=== PATIENT | female | born 1995 | race American Indian/Alaskan Native ===

== ENCOUNTER 2022-06-20 11:52 | Inpatient (IN) | payer MEDICAID ==
[2022-06-20] MEDS ORDERED: OXYTOCIN 10 UNIT/1 ML INJ IM NR (11:59)
[2022-06-20] MEDS ORDERED: TERBUTALINE 1 MG/1 ML INJ SUB-Q NR (11:59)
[2022-06-20 13:10] LABS: Hematocrit 32.5 % (30.3-42.9); Hemoglobin 10.9 gm/dl (10.1-14.3); Mean Corpuscular HGB Conc 34 % (30-34); Mean Corpuscular Volume 96 fl (79-97); Platelet Count 197 K/mm3 (140-440); Red Blood Count 3.39 M/mm3 (3.65-5.03); Red Cell Distribution Width 13.7 % (13.2-15.2)
[2022-06-20] MEDS ORDERED: LIDOCAINE (2%) 20 MG/1 ML VIAL 20 ML MDV INFILTRATI NR (14:00)
[2022-06-20] MEDS ORDERED: ePHEDrine SULFATE 50 MG/1 ML INJ IV PRN ×2 (14:00→19:30)
--- NOTE | 2022-06-20 14:25 | History and Physical Report ---
History of Present Illness Date of examination: 06/20/22 Chief complaint: pt sent from [facility] office for IOL d/t IUGR History of present illness: EDC Calculations by LMP: 06/27/2022 Past History : 2 Term Births: 1 Premature Births: 0 Living Children: 1 Para: 1 Mult. Births: 0 Prev : 0 Aborta: 0 Elect. Ab: 0 Spont. Ab: 0 Ectopics: 0 # 1 Delivery date: 2013 Weeks Gestation: 39.3 labor: no Delivery type: Hours of labor: 4.5 Anesthesia type: epidural Infant Sex: Female weight: 6-3 Comments: No complications Past Medical History: Reviewed and updated today: Negative Past Medical History Past Surgical History: Reviewed and updated today: negative Negative Past Surgical History Family History Summary: CHRISTINA - Has Family History of Diabetes - Entered On: 05/18/2022 Social History: Patient is Smoking History: Patient has never smoked. Risk Factors: Smoked Tobacco Use: Never smoker Smokeless Tobacco Use: Never HIV High Risk Behavior: no Caffeine Use: 2 drinks per day Exercise: yes Type of Exercise: walking Exercise Counseling: yes Seatbelt Use: preg-assessment counselor % Sun Exposure: rarely Family History Risk Factors: Family History of AR in 1 Female Relative Age < 65: no Family History of AR in 1 Male Relative Age < 55: no Dietary Counseling: yes PAP Smear History: Date of Last PAP Smear: 11/25/2021 Results: normal Alcohol Use: no Drug Use: no Past Medical History Anesthesia Complications: negative Anemia: negative Autoimmune Disorder: negative Bleeding Disorder: negative Blood Transfusions: negative Breast Disease: negative Diabetes: negative Heart Disease: negative Hypertension: negative Hepatitis/Liver Disease: negative Kidney Disease/UTI: negative Neurologic/Epilepsy/Migraines: negative Phlebitis/Varicosities: negative Psychiatric: negative Pulmonary Disease/Asthma: negative Thyroid Disease: negative Hospitalizations: negative Surgery (Non-supervisor shaving and splitting): negative Negative Past Surgical History Abnormal PAP: negative NORIS Exposure: negative Infertility: negative Uterine Anomaly: negative Uterine Surgery (not C/S): negative Other Gynecologic Problems: negative Social Hx: Patient is Smoking History: Patient has never smoked. Infection History Hx of STD: none HIV Risk Eval: no Hepatitis B Risk Eval: low risk Personal hx. of genital herpes: no Partner hx. of genital herpes: no Rash, Viral, or Febrile illness since last LMP? no Varicella/Chicken Pox Status: Previous Disease TB Risk: no Genetic History Congenital Heart Defect: Mom: no Dad: no Mich Disease: Mom: no Dad: no Thalassemia Mom: no Dad: no Neural Tube Defect Mom: no Dad: no Down's Syndrome Mom: no Dad: no Kole-Sachs Mom: no Dad: no Sickle Cell Disease/Trait Mom: no Dad: no Hemophilia Mom: no Dad: no Muscular Dystrophy Mom: no Dad: no Cystic Fibrosis Mom: no Dad: no [place] Chorea Mom: no Dad: no Mental Retardation Mom: no Dad: no Fragile X Mom: no Dad: no Other Genetic/Chromosomal Disorder Mom: no Dad: no Child w/other defect Mom: no Dad: no Enviromental Exposures Xray Exposure: no Medication, drug, or alcohol use since LMP: no Chemical/Other Exposure: no Exposure to Cat Liter: no Hx of Parvovirus (Fifth Disease): no Occupational Exposure to Children: none Active Medications (reviewed today): None Current Allergies: Past History Past Medical History: other (see HPI) Past Surgical History: other (see HPI) FINAL EXPENSE AGENT History: other (see HPI) Family/Genetic History: other (see HPI) - Obstetrical History Expected Date of Delivery: 06/27/22 Actual Gestation: 39 Week(s) 0 Day(s) : 2 Para: 1 Hx # Term Pregnancies: 1 Number of Pregnancies: 0 Spontaneous Abortions: 0 Induced : 0 Number of Living Children: 1 Medications and Allergies Allergies Allergy/AdvReac Type Severity Reaction Status Date / Time No Known Allergies Allergy Unverified 06/20/22 13:28 Active Meds: Active Medications Acetaminophen (Acetaminophen 325 Mg Tab) 650 mg PO Q4H PRN PRN Reason: Pain, Mild (1-3) Carboprost Tromethamine (Carboprost Tromethamine 250 Mcg/1 Ml Inj) 250 mcg IM ONCE NR Stop: 06/20/22 23:00 Ephedrine Sulfate (Ephedrine Sulfate 50 Mg/1 Ml Inj) 10 mg IV Q2M PRN PRN Reason: Hypotension Fentanyl (Fentanyl 100 Mcg/2 Ml Inj) 100 mcg IV Q2H PRN PRN Reason: Pain,Severe (7-10) LABOR PAIN Oxytocin/Sodium Chloride (Pitocin/Ns 30 Unit/500ml) 30 units in 500 mls @ 4 mls/hr IV TITR MEHREEN; Protocol Lactated Ringer's (Lactated Ringers) 1,000 mls @ 125 mls/hr IV DIRECT MEHREEN Oxytocin/Sodium Chloride (Pitocin/Ns 30 Unit/500ml) 30 units in 500 mls @ 40 mls/hr IV TITR MEHREEN; Protocol Lidocaine (Lidocaine (2%) 20 Mg/1 Ml Vial 20 Ml Mdv) 20 ml INFILTRATI ONCE NR Stop: 06/20/22 23:00 Loperamide HCl (Loperamide 2 Mg Cap) 2 mg PO ONCE PRN PRN Reason: give with Hemabate Methylergonovine Maleate (Methylergonovine Maleate 0.2 Mg/Ml Vial) 0.2 mg IM ONCE PRN PRN Reason: Uterine Bleeding Mineral Oil (Mineral Oil 30 Ml Oral Liqd) 30 ml PO QHS PRN PRN Reason: Constipation Misoprostol (Misoprostol 200 Mcg Tab) 800 mcg DE ONCE PRN PRN Reason: Uterine Bleeding Nalbuphine HCl (Nalbuphine 10 Mg/1 Ml Inj) 10 mg IV Q2H PRN PRN Reason: Pain, Moderate (4-6) Ondansetron HCl (Ondansetron 4 Mg/2 Ml Inj) 4 mg IV Q8H PRN PRN Reason: Nausea And Vomiting Oxytocin (Oxytocin 10 Unit/1 Ml Inj) 10 unit IM ONCE NR Stop: 06/20/22 23:00 Terbutaline Sulfate (Terbutaline 1 Mg/1 Ml Inj) 0.25 mg SUB-Q ONCE NR Stop: 06/20/22 23:00 Review of Systems All systems: negative - Vital Signs Vital signs: Vital Signs Pulse Pulse Ox 90 99 06/20/22 12:31 06/20/22 12:31 Temp Pulse Resp BP Pulse Ox 90 100 06/20/22 14:16 06/20/22 14:16 - Physical Exam Breasts: Positive: normal Cardiovascular: Regular rate Lungs: Positive: Clear to auscultation, Normal air movement Abdomen: Positive: normal appearance, soft Genitourinary (Female): Positive: normal external genitalia, normal perenium Vagina: Positive: normal moisture Uterus: Positive: normal size, normal contour - Obstetrical FHR: category 1 Uterine Contraction Monitor Mode: External Cervical Dilatation: 2 Cervical Effacement Percentage: 70 station: -1 Uterine Tone Measurement Phase: Resting Results Result Diagrams: 06/20/22 12:47 Abnormal lab results 06/20/22 Range/Units 12:47 RBC 3.39 L (3.65-5.03) M/mm3 All other labs normal. Assessment and Plan 26y/o @ 39 weeks admitted for IOL as recommended by [facility] d/t IUGR. EFW 6#2oz, cephalic presentation. IOL orders in EMR. all questions addressed. Epidural PRN. Anticipate . - Patient Problems (1) 39 weeks gestation of Current Visit: Yes Status: Acute (2) Abnormal glucose tolerance test (GTT) Current Visit: Yes Status: Acute Plan to address problem: late 1hGTT elevated @ 144, no 3hr done Peds to see baby after delivery (3) IUGR (intrauterine growth restriction) Current Visit: Yes Status: Acute (4) Rh negative status during Current Visit: Yes Status: Acute Qualifiers: Trimester: third trimester Qualified Code(s): O26.893 - Other specified related conditions, third trimester; Z67.91 - Unspecified blood type, Rh negative Plan to address problem: Rhogam work up
[2022-06-20] MEDS ORDERED: OXYTOCIN DRIP 30 UNITS/500 ML BAG IV SCH ×2 (14:30)
[2022-06-20] MEDS ORDERED: CARBOPROST TROMETHAMINE 250 MCG/1 ML INJ IM NR (14:30)
[2022-06-20] MEDS ORDERED: fentaNYL 100 MCG/2 ML INJ IV PRN (14:30)
[2022-06-20] MEDS ORDERED: METHYLERGONOVINE MALEATE 0.2 MG/ML VIAL IM PRN (14:30)
[2022-06-20] MEDS ORDERED: NalbUPHINE 10 MG/1 ML INJ IV PRN (14:30)
[2022-06-20] MEDS ORDERED: ACETAMINOPHEN 325 MG TAB PO PRN (14:30)
[2022-06-20] MEDS ORDERED: ONDANSETRON 4 MG/2 ML INJ IV PRN (14:30)
[2022-06-20] MEDS ORDERED: miSOPROStol 200 MCG TAB PR PRN (14:30)
[2022-06-20] MEDS ORDERED: LOPERAMIDE 2 MG CAP PO PRN (14:30)
[2022-06-20] MEDS ORDERED: LACTATED RINGERS 1,000 ML IV SCH (14:30)
--- NOTE | 2022-06-20 17:22 | Progress Note ---
Assessment and Plan Pt marco antonio regularly on pitocin, tolerating labor well. SVE 3-4/70/0. AROM with moderate amount of clear fluid. FHTs reassuring. Anticipate - Patient Problems (1) 39 weeks gestation of Current Visit: Yes Status: Acute (2) Abnormal glucose tolerance test (GTT) Current Visit: Yes Status: Acute (3) IUGR (intrauterine growth restriction) Current Visit: Yes Status: Acute (4) Rh negative status during Current Visit: Yes Status: Acute Qualifiers: Trimester: third trimester Qualified Code(s): O26.893 - Other specified related conditions, third trimester; Z67.91 - Unspecified blood type, Rh negative Subjective - Subjective Date of service: 06/20/22 Interval history: EDC Calculations by LMP: 06/27/2022 Past History : 2 Term Births: 1 Premature Births: 0 Living Children: 1 Para: 1 Mult. Births: 0 Prev : 0 Aborta: 0 Elect. Ab: 0 Spont. Ab: 0 Ectopics: 0 # 1 Delivery date: 2013 Weeks Gestation: 39.3 labor: no Delivery type: Hours of labor: 4.5 Anesthesia type: epidural Infant Sex: Female weight: 6-3 Comments: No complications Past Medical History: Reviewed and updated today: Negative Past Medical History Past Surgical History: Reviewed and updated today: negative Negative Past Surgical History Family History Summary: CHRISTINA - Has Family History of Diabetes - Entered On: 05/18/2022 Social History: Patient is Smoking History: Patient has never smoked. Risk Factors: Smoked Tobacco Use: Never smoker Smokeless Tobacco Use: Never HIV High Risk Behavior: no Caffeine Use: 2 drinks per day Exercise: yes Type of Exercise: walking Exercise Counseling: yes Seatbelt Use: preg-estate planning counselor % Sun Exposure: rarely Family History Risk Factors: Family History of RI in 1 Female Relative Age < 65: no Family History of RI in 1 Male Relative Age < 55: no Dietary Counseling: yes PAP Smear History: Date of Last PAP Smear: 11/25/2021 Results: normal Alcohol Use: no Drug Use: no Past Medical History Anesthesia Complications: negative Anemia: negative Autoimmune Disorder: negative Bleeding Disorder: negative Blood Transfusions: negative Breast Disease: negative Diabetes: negative Heart Disease: negative Hypertension: negative Hepatitis/Liver Disease: negative Kidney Disease/UTI: negative Neurologic/Epilepsy/Migraines: negative Phlebitis/Varicosities: negative Psychiatric: negative Pulmonary Disease/Asthma: negative Thyroid Disease: negative Hospitalizations: negative Surgery (Non-music publicist): negative Negative Past Surgical History Abnormal PAP: negative NORIS Exposure: negative Infertility: negative Uterine Anomaly: negative Uterine Surgery (not C/S): negative Other Gynecologic Problems: negative Social Hx: Patient is Smoking History: Patient has never smoked. Infection History Hx of STD: none HIV Risk Eval: no Hepatitis B Risk Eval: low risk Personal hx. of genital herpes: no Partner hx. of genital herpes: no Rash, Viral, or Febrile illness since last LMP? no Varicella/Chicken Pox Status: Previous Disease TB Risk: no Genetic History Congenital Heart Defect: Mom: no Dad: no Mich Disease: Mom: no Dad: no Thalassemia Mom: no Dad: no Neural Tube Defect Mom: no Dad: no Down's Syndrome Mom: no Dad: no Kole-Sachs Mom: no Dad: no Sickle Cell Disease/Trait Mom: no Dad: no Hemophilia Mom: no Dad: no Muscular Dystrophy Mom: no Dad: no Cystic Fibrosis Mom: no Dad: no [place] Chorea Mom: no Dad: no Mental Retardation Mom: no Dad: no Fragile X Mom: no Dad: no Other Genetic/Chromosomal Disorder Mom: no Dad: no Child w/other defect Mom: no Dad: no Enviromental Exposures Xray Exposure: no Medication, drug, or alcohol use since LMP: no Chemical/Other Exposure: no Exposure to Cat Liter: no Hx of Parvovirus (Fifth Disease): no Occupational Exposure to Children: none Active Medications (reviewed today): None Current Allergies: Patient reports: movement normal, contractions Objective - Vital Signs Vital Signs: Vital Signs - 12hr 06/20/22 06/20/22 06/20/22 12:31 12:36 12:41 Pulse Rate 90 88 88 O2 Sat by Pulse 99 100 99 Oximetry 06/20/22 06/20/22 06/20/22 12:46 12:51 12:56 Pulse Rate 94 H 92 H 95 H O2 Sat by Pulse 99 99 99 Oximetry 06/20/22 06/20/22 06/20/22 13:01 13:06 13:11 Pulse Rate 110 H 90 97 H O2 Sat by Pulse 100 100 99 Oximetry 08/15/22 08/15/22 08/15/22 13:16 13:21 13:26 Pulse Rate 94 H 91 H 87 O2 Sat by Pulse 100 99 100 Oximetry 06/20/22 06/20/22 06/20/22 13:31 13:36 13:41 Pulse Rate 88 88 96 H O2 Sat by Pulse 100 100 99 Oximetry 06/20/22 06/20/22 06/20/22 13:46 13:51 13:56 Pulse Rate 78 87 91 H O2 Sat by Pulse 100 100 100 Oximetry 06/20/22 06/20/22 06/20/22 14:01 14:06 14:11 Pulse Rate 86 85 95 H O2 Sat by Pulse 100 100 100 Oximetry 06/20/22 06/20/22 06/20/22 14:16 14:21 14:26 Pulse Rate 90 90 85 O2 Sat by Pulse 100 99 100 Oximetry 06/20/22 06/20/22 06/20/22 14:31 14:36 14:41 Pulse Rate 106 H 90 90 O2 Sat by Pulse 100 100 100 Oximetry 06/20/22 06/20/22 06/20/22 14:46 14:51 14:56 Pulse Rate 85 84 80 O2 Sat by Pulse 100 100 100 Oximetry 06/20/22 06/20/22 06/20/22 15:01 15:06 15:11 Pulse Rate 92 H 95 H 88 O2 Sat by Pulse 100 98 99 Oximetry 06/20/22 06/20/22 06/20/22 15:16 15:21 15:26 Pulse Rate 79 92 H 86 O2 Sat by Pulse 99 99 99 Oximetry 06/20/22 06/20/22 06/20/22 15:31 15:40 15:45 Pulse Rate 89 80 89 O2 Sat by Pulse 100 100 100 Oximetry 06/20/22 06/20/22 06/20/22 15:50 15:55 16:00 Pulse Rate 94 H 90 90 O2 Sat by Pulse 100 100 100 Oximetry 06/20/22 06/20/22 06/20/22 16:05 16:10 16:15 Pulse Rate 88 86 84 O2 Sat by Pulse 100 100 100 Oximetry 06/20/22 06/20/22 06/20/22 16:20 16:25 16:30 Pulse Rate 84 86 83 O2 Sat by Pulse 100 100 100 Oximetry 06/20/22 06/20/22 06/20/22 16:35 16:40 16:45 Pulse Rate 82 83 82 O2 Sat by Pulse 100 100 100 Oximetry 06/20/22 06/20/22 06/20/22 16:50 16:55 17:00 Pulse Rate 82 79 90 O2 Sat by Pulse 100 100 100 Oximetry 06/20/22 06/20/22 06/20/22 17:05 17:10 17:15 Pulse Rate 96 H 86 89 O2 Sat by Pulse 100 100 100 Oximetry - Exam Abdomen: Present: normal appearance, soft Uterus: Present: normal FHR: auscultation normal Uterine Contraction Monitor Mode: External Cervical Dilatation: 3.5 Cervical Effacement Percentage: 70 station: 0 Uterine Contraction Pattern: Regular Extremities: normal - Labs Labs: Abnormal Labs 06/20/22 12:47 RBC 3.39 L Laboratory Results - last 24 hr 06/20/22 06/20/22 12:47 12:47 WBC 9.4 RBC 3.39 L Hgb 10.9 Hct 32.5 MCV 96 MCH 32 MCHC 34 RDW 13.7 Plt Count 197 Blood Type O NEGATIVE Antibody Screen Positive Antibody Identification Anti-D (Passively Aquired)
[2022-06-20] MEDS ORDERED: MINERAL OIL 30 ML ORAL LIQD ONE (18:02)
--- NOTE | 2022-06-20 18:45 | Anesthesia Consultation ---
Anesthesia Consult and Med Hx Date of service: 06/20/22 - Airway Anesthetic Teeth Evaluation: Good ROM Head & Neck: Adequate Mental/Hyoid Distance: Adequate Mallampati Class: Class II Intubation Access Assessment: Probably Good - Pulmonary Exam CTA: Yes - Cardiac Exam Cardiac Exam: RRR - Pre-Operative Health Status ASA Pre-Surgery Classification: ASA2 Proposed Anesthetic Plan: Epidural - Pulmonary Hx Smoking: No Hx Asthma: No Hx Respiratory Symptoms: No SOB: No COPD: No Home Oxygen Therapy: No Hx Pneumonia: No Hx Sleep Apnea: No - Cardiovascular System Hx Hypertension: No Hx Coronary Artery Disease: No Hx Heart Attack/AMI: No Hx Angina: No Hx Percutaneous Transluminal Coronary Angioplasty (PTCA): No Hx Cardia Arrhythmia: No Hx Pacemaker: No Hx Internal Defibrillator: No Hx Valvular Heart Disease: No Hx Heart Murmur: No Hx Peripheral Vascular Disease: No - Central Nervous System Hx Neuromuscular Disorder: No Hx Seizures: No CVA: No Hx Back Pain: No Hx Psychiatric Problems: Yes (depression) - Gastrointestinal Hx Ulcer: No Hx Gastroesophageal Reflux Disease: No - Endocrine Hx Renal Disease: No Hx End Stage Renal Disease: No Hx Cirrhosis: No Hx Liver Disease: No Hx Insulin Dependent Diabetes: No Hx Non-Insulin Dependent Diabetes: No Hx Thyroid Disease: No Hx Hypothyroidism: No Hx Hyperthyroidism: No - Hematic Hx Anemia: No Hx Sickle Cell Disease: No - Other Systems Hx Alcohol Use: No Hx Substance Use: No Hx Cancer: No Hx Obesity: No
--- NOTE | 2022-06-20 18:45 | Anesthesia Day of Surgery ---
Anesthesia Day of Surgery - Day of Surgery Patient Examined: Yes Patient H&P Reviewed: Yes Patient is NPO: Yes Beta Blockers: No Cardiac Clearance: No Pulmonary Clearance: No René's Test: N/A
--- NOTE | 2022-06-20 18:45 | Progress Note ---
Labor Epidural - Labor Epidural Start Time: 18:25 Stop Time: 18:27 Performed by:: BAN ACEVEDO Procedure: Epidural Requested for Labor Pain. H&P and PT Chart reviewed and consent obtained. Time out performed and the procedure was explained, all questions answered. Patient was placed in a sitting position with monitors applied. The PTs back was prepped and draped in usual sterile fashion. The Skin was localized with 3 mL of 1% lidocaine at L3-L4. A 17-gauge Touhy epidural needle was advanced to ANGEL with saline at 7 cm and no blood/CSF was noted via epidural needle. Epidural catheter was advanced to 12 cm. There was negative aspiration for blood and CSF in the catheter and negative response to a test dose of 3 ml 1.5% lidocaine w/ Epi and a sterile dressing was applied Patient tolerated the procedure well and there were no immediate complications noted.
[2022-06-20] MEDS ORDERED: fentaNYL-BUPIV 2 MCG/ML-0.125% 200 MCG/100 ML BAG EPIDURAL SCH (19:00)
[2022-06-20] MEDS ORDERED: fentaNYL-BUPIV 2 MCG/ML-0.125% 200 MCG/100 ML BAG EPIDURAL ONE (19:01)
[2022-06-20] MEDS ORDERED: NALOXONE 0.4 MG/1 ML INJ IV PRN (19:30)
--- NOTE | 2022-06-20 21:43 | Procedure Note ---
OB Delivery Note - Delivery Date of Delivery: 06/20/22 Hoist Operator: FABRICIO GUIDRY (Darling SANCHEZ) Estimated blood loss: <100cc - Vaginal Delivery presentation: vertex Delivery position: OA Intrapartum events: none Delivery induction: oxytocin Delivery augmentation: rupture of membranes Delivery monitor: external FHT Route of delivery: Delivery placenta: spontaneous Delivery cord: 3 umbilical vessels Episiotomy: none Anesthesia: epidural Delivery comments: Baby girl delivered over intact perineum, placed skin to skin, cord cut after p ulse cessation, cord blood collected; placenta delivered intact. EBL <100ml. Mom and baby stable, all counts correct x2. Placenta to pathology. - A at 1 minute: 8 at 5 minutes: 9 Gender: Female (5lb 7oz 2460gm)
[2022-06-20] MEDS ORDERED: MINERAL OIL 30 ML ORAL LIQD PO PRN (22:00)
[2022-06-21] MEDS ORDERED: PROMETHAZINE 25 MG TAB PO PRN (01:53)
[2022-06-21] MEDS ORDERED: BENZOCAINE/MENTHOL 20/0.5% TOP SPRAY 56 GM TP PRN (01:53)
[2022-06-21] MEDS ORDERED: diphenhydrAMINE 25 MG CAP PO PRN (01:53)
[2022-06-21] MEDS ORDERED: LANOLIN/ZINC/DIMETHICONE (LANSINOH) 7 GM TP PRN (01:53)
[2022-06-21] MEDS ORDERED: MAGNESIUM HYDROXIDE (MOM) ORAL LIQD UDC PO PRN (01:53)
[2022-06-21] MEDS ORDERED: ONDANSETRON 4 MG/2 ML INJ IV PRN (01:53)
[2022-06-21] MEDS ORDERED: WITCH HAZEL/ GLYCERIN PAD TP PRN (01:53)
[2022-06-21] MEDS: IBUPROFEN 800 MG TAB PO SCH ×5 (02:00→22:59)
[2022-06-21] MEDS: FERROUS SULFATE 325 MG TAB PO SCH ×3 (03:25→23:00)
--- NOTE | 2022-06-21 08:24 | Progress Note ---
Assessment and Plan A: 26 y.o. . - Patient Problems (1) (normal spontaneous vaginal delivery) Current Visit: Yes Status: Acute Plan to address problem: Continue with care. Anticipate discharge home on 06/22. Subjective - Subjective Date of service: 06/21/22 Principal diagnosis: s/p Patient reports: appetite normal, voiding normally, pain well controlled, flatus, ambulating normally : doing well Objective - Vital Signs Latest vital signs: Vital Signs Temp Pulse Resp BP BP Pulse Ox Pulse Ox 06/21/22 07:47 98.1 F 65 18 121/85 100 06/21/22 04:35 97.9 F 69 18 135/81 100 06/20/22 23:20 98.1 F 77 16 119/67 100 100 06/20/22 22:50 98.3 F 06/20/22 22:39 80 118/71 06/20/22 22:09 74 128/67 06/20/22 21:59 94 H 72 L 06/20/22 21:54 80 122/57 100 06/20/22 21:36 98 H 78 L 06/20/22 21:35 92 H 100 06/20/22 21:30 99 H 100 06/20/22 21:25 92 H 100 06/20/22 21:20 129 H 100 06/20/22 21:15 110 H 100 06/20/22 21:10 99 H 137/65 100 06/20/22 21:05 91 H 99 06/20/22 21:00 74 100 06/20/22 20:55 81 100 06/20/22 20:50 73 100 06/20/22 20:45 76 100 06/20/22 20:40 85 99 06/20/22 20:35 85 98 06/20/22 20:30 70 100 06/20/22 20:25 85 100 06/20/22 20:22 84 93 06/20/22 20:20 68 100 06/20/22 20:15 76 100 06/20/22 20:10 81 121/69 99 06/20/22 20:05 81 100 06/20/22 20:00 91 H 100 06/20/22 19:55 91 H 100 06/20/22 19:50 87 100 06/20/22 19:45 89 100 06/20/22 19:40 89 100 06/20/22 19:39 90 129/70 06/20/22 19:35 89 100 06/20/22 19:30 94 H 100 06/20/22 19:25 85 100 06/20/22 19:24 87 161/82 06/20/22 19:20 87 100 06/20/22 19:15 89 100 06/20/22 19:10 86 100 06/20/22 19:05 91 H 100 06/20/22 19:04 98 F 89 17 139/89 139/89 100 100 06/20/22 19:00 95 H 100 06/20/22 18:58 104 H 144/94 06/20/22 18:55 120 H 100 06/20/22 18:53 83 137/83 06/20/22 18:50 99 H 100 06/20/22 18:49 93 H 141/80 06/20/22 18:45 87 100 06/20/22 18:44 91 H 143/80 06/20/22 18:40 84 100 06/20/22 18:39 84 127/60 06/20/22 18:35 90 100 06/20/22 18:33 88 141/87 06/20/22 18:30 91 H 100 06/20/22 18:29 82 138/82 06/20/22 18:25 88 100 06/20/22 18:24 87 153/85 06/20/22 18:20 83 100 06/20/22 18:19 86 140/80 06/20/22 18:15 107 H 98 06/20/22 18:14 85 139/98 06/20/22 18:10 95 H 100 06/20/22 18:09 86 142/80 06/20/22 18:08 78 93 06/20/22 18:05 87 97 06/20/22 18:00 85 100 06/20/22 17:55 81 100 06/20/22 17:50 88 100 06/20/22 17:45 84 100 06/20/22 17:40 88 100 06/20/22 17:35 86 100 06/20/22 17:30 85 100 06/20/22 17:25 83 100 06/20/22 17:20 87 100 06/20/22 17:15 89 100 06/20/22 17:10 86 100 06/20/22 17:05 96 H 100 06/20/22 17:00 90 100 06/20/22 16:55 79 100 06/20/22 16:50 82 100 06/20/22 16:45 82 100 06/20/22 16:40 83 100 06/20/22 16:35 82 100 06/20/22 16:30 83 100 06/20/22 16:25 86 100 06/20/22 16:20 84 100 06/20/22 16:15 84 100 06/20/22 16:10 86 100 06/20/22 16:05 88 100 06/20/22 16:00 90 100 06/20/22 15:55 90 100 06/20/22 15:50 94 H 100 06/20/22 15:45 89 100 06/20/22 15:40 80 100 06/20/22 15:31 89 100 06/20/22 15:26 86 99 06/20/22 15:21 92 H 99 06/20/22 15:16 79 99 06/20/22 15:11 88 99 06/20/22 15:06 95 H 98 06/20/22 15:01 92 H 100 06/20/22 14:56 80 100 06/20/22 14:51 84 100 06/20/22 14:46 85 100 06/20/22 14:41 90 100 06/20/22 14:36 90 100 06/20/22 14:31 106 H 100 06/20/22 14:26 85 100 06/20/22 14:21 90 99 06/20/22 14:16 90 100 06/20/22 14:11 95 H 100 06/20/22 14:06 85 100 06/20/22 14:01 86 100 06/20/22 13:56 91 H 100 06/20/22 13:51 87 100 06/20/22 13:46 78 100 06/20/22 13:41 96 H 99 06/20/22 13:36 88 100 06/20/22 13:31 88 100 06/20/22 13:26 87 100 06/20/22 13:21 91 H 99 06/20/22 13:16 94 H 100 06/20/22 13:11 97 H 99 06/20/22 13:06 90 100 06/20/22 13:01 110 H 100 06/20/22 12:56 95 H 99 06/20/22 12:51 92 H 99 06/20/22 12:46 94 H 99 06/20/22 12:41 88 99 06/20/22 12:36 88 100 06/20/22 12:31 90 99 Intake and Output 06/20/22 06/21/22 06/21/22 22:59 06:59 14:59 Intake Total 39.466 240 Output Total 400 500 Balance -360.534 -260 Intake: IV 39.466 PITOCin/NS 30 UNIT/500ML 39.466 30 units In 500 ml @ 4 mls/hr IV TITR MEHREEN Rx#: [id number] Intake, Free Water 240 Output: Urine 400 500 Indwelling Catheter 400 Void 500 Other: Total, Output Amount 200 500 # Voids Void 1 Estimated Blood Loss 100 - Exam Cardiovascular: Present: Regular rate Lungs: Present: Normal air movement Abdomen: Present: normal appearance, soft Vulva: both: normal Uterus: Present: normal, firm, other (Light lochia rubra noted. ) Extremities: Present: normal - Labs Labs: Abnormal lab results 06/20/22 Range/Units 12:47 RBC 3.39 L (3.65-5.03) M/mm3
[2022-06-21] MEDS: PRENATAL VIT27-FE FUMARATE-FOLIC ACID VIT TAB PO SCH (09:52)
[2022-06-21 10:21] LABS: Hematocrit 34.8 % (30.3-42.9); Hemoglobin 11.8 gm/dl (10.1-14.3)
[2022-06-22] MEDS ORDERED: TETANUS,DIPH,PERTUSS(ACELL) VACCINE 0.5 ML SYRINGE IM ONE (06:00)
--- NOTE | 2022-06-22 08:48 | Discharge Summary ---
Providers - Providers Date of Admission: 06/20/22 11:59 Date of discharge: 06/22/22 (desires d/c home) Attending physician: YONY SANTANA 06/21/22 01:53 Consult to Director Employee Communications [CONS] Routine Reason For Exam: assistance with , SNS Primary care physician: YONY SANTANA Hospitalization Reason for admission: IOL IUGR Condition: Good Pertinent studies: post delivery H&H 11.8/34.8 Procedures: Hospital course: uncomplicated and course Disposition: 01 HOME / SELF CARE / HOMELESS Final Discharge Diagnosis (Prints w/discharge instructions): vaginal Time spent for discharge: 20 - Discharge Diagnoses (1) (normal spontaneous vaginal delivery) Status: Acute Core Measure Documentation - Palliative Care Palliative Care/ Comfort Measures: Not Applicable - Core Measures Any of the following diagnoses?: none Exam - Constitutional Vitals: Temp Pulse Resp BP Pulse Ox 97.9 F 54 L 18 117/66 99 06/22/22 00:41 06/22/22 00:41 06/22/22 00:41 06/22/22 00:41 06/22/22 00:41 General appearance: Present: no acute distress, well-nourished - EENT Eyes: Present: PERRL ENT: hearing intact, clear oral mucosa - Neck Neck: Present: supple, normal ROM - Respiratory Respiratory effort: normal Respiratory: bilateral: CTA - Cardiovascular Rhythm: regular Heart Sounds: Absent: rub, click - Extremities Extremities: No edema Peripheral Pulses: within normal limits - Abdominal General gastrointestinal: Present: soft, non-tender, non-distended, normal bowel sounds Female genitourinary: Present: normal - Integumentary Integumentary: Present: clear, warm, dry - Musculoskeletal Musculoskeletal: gait normal, strength equal bilaterally - Psychiatric Psychiatric: appropriate mood/affect, intact judgment & insight - Neurologic Neurologic: CNII-XII intact, moves all extremities - Additional findings Additional findings: lochia scant, fundus firm, VSSAF, bottle feeding Plan Activity: no restrictions Diet: regular Follow up with: YONY SANTANA MD [Primary Care Provider] - 6 Weeks (Congratulations! Please call [phone] to schedule your visit in 4-6 weeks. Call for any questions or concerns. ) Prescriptions: Ibuprofen [Motrin] 800 mg PO Q8HR PRN #30 tablet PRN Reason: Pain, Moderate (4-6)
[2022-06-22 09:22] VITALS: BP 113/73
[2022-06-22] MEDS: PRENATAL VIT27-FE FUMARATE-FOLIC ACID VIT TAB PO SCH (09:54)
[2022-06-22] MEDS: FERROUS SULFATE 325 MG TAB PO SCH (09:54)
[2022-06-22] MEDS: IBUPROFEN 800 MG TAB PO SCH (09:54)
--- NOTE | 2022-06-22 10:02 | Post Anesthesia Evaluation ---
- Post Anesthesia Evaluation Patient Participated: Yes Airway Patent: Yes Stable Respiratory Function: Yes Nausea/Vomiting: No Temp > 96.8F: Yes Pain Manageable: Yes Adequeate Hydration: Yes Anesthesia Complications: No Block Receding Appropriately: Yes Patient on Ventilator: No
== END 2022-06-22 14:54 | disposition home or self-care (01) | DRG 775 ==
LOC: TRG 11:52 → LD 11:54 → TRG 11:59 → LD 11:59 → OB 06-21 00:30
PROVIDERS: ADMIT Obstetrics & Gynecology; ATTEND Obstetrics & Gynecology
PROC: 10E0XZZ Delivery of Products of Conception, External Approach (ICD-10-PCS; principal; 2022-06-20)
PROC: 10907ZC Drainage of Amniotic Fluid, Therapeutic from Products of Conception, Via Natural or Artificial Opening (ICD-10-PCS; 2022-06-20)
PROC: 3E0R3BZ Introduction of Anesthetic Agent into Spinal Canal, Percutaneous Approach (ICD-10-PCS; 2022-06-20)
PROC: 00HU33Z Insertion of Infusion Device into Spinal Canal, Percutaneous Approach (ICD-10-PCS; 2022-06-20)
PROC: 3E033VJ Introduction of Other Hormone into Peripheral Vein, Percutaneous Approach (ICD-10-PCS; 2022-06-20)
PROC: 3E0234Z Introduction of Serum, Toxoid and Vaccine into Muscle, Percutaneous Approach (ICD-10-PCS; 2022-06-21)
DX: O36.5930 Maternal care for other known or suspected poor fetal growth, third trimester, not applicable or unspecified (principal); Z37.0 Single live birth; Z3A.39 39 weeks gestation of pregnancy; Z20.822 Contact with and (suspected) exposure to COVID-19; Z23 Encounter for immunization; O26.893 Other specified pregnancy related conditions, third trimester; Z67.41 Type O blood, Rh negative; O99.814 Abnormal glucose complicating childbirth
CPT/HCPCS: 36415; 85014; 85018; 85027; 85461; 86592; 86850; 86870; 86900; 86901; 88307; G0378; J3490; J2590; J2790; J7120; U0003